=== PATIENT | female | born 1995 | race Caucasian/White ===

== ENCOUNTER 2019-08-28 17:37 | Inpatient (IN) | payer OTHER ==
[~2019-08-28] VITALS: Ht 152.4 cm; Wt 56.7 kg
[2019-08-28 17:37] VITALS: BP_SYST 119
--- NOTE | 2019-08-28 17:37 | NUR ---
BROUGHT BACK TO ER #4 AND TRIAGED. REPORT GIVEN TO WILLARD
--- NOTE | 2019-08-28 17:55 | NUR ---
ER Dr. James at bedside examining patient.
[2019-08-28] MEDS ORDERED: ONDANSETRON HCL 4 MG/2 ML VIAL IVP ONE (18:00)
[2019-08-28] MEDS ORDERED: NACL 0.9% 1,000 ML IV ONE (18:00)
[2019-08-28 18:07] LABS: BASOPHILS # (AUTO) 0.1 K/uL (0.0-0.2); BASOPHILS % (AUTO) 0.6 % (0.0-2.0); EOSINOPHILS # (AUTO) 0.1 K/uL (0.0-0.4); EOSINOPHILS % (AUTO) 0.5 % (0.0-4.0); HEMOGLOBIN 14.6 g/dL (12.0-16.0); LYMPHOCYTES # (AUTO) 1.4 K/uL (1.0-5.5); LYMPHOCYTES % (AUTO) 14.6 % (20.5-51.5); MEAN CORPUSCULAR HEMOGLOBIN 31 pg (27-31); MEAN CORPUSCULAR HGB CONC 35 % (32-36); MEAN CORPUSCULAR VOLUME 89 fL (79.0-98.0); MONOCYTES # (AUTO) 0.7 K/uL (0.0-1.0); MONOCYTES % (AUTO) 7.5 % (1.7-9.3); NEUTROPHILS # (AUTO) 7.5 K/uL (1.8-7.7); NEUTROPHILS % (AUTO) 76.8 % (40.0-70.0); PLATELET COUNT (AUTO) 264 K/uL (130-430); RED BLOOD CELL COUNT(AUTO) 4.74 MIL/uL (4.2-6.2); RED CELL DISTRIBUTION WIDTH 13.6 % (9.0-15.0); WHITE BLOOD COUNT (AUTO) 9.8 K/uL (4.8-10.8)
--- NOTE | 2019-08-28 18:30 | NUR ---
Pt c/o n/v and states she is 9 weeks and had also recently been getting IVs and fluids. Pt states no pain at this time. No other complaints or injuries per pt or noted.
--- NOTE | 2019-08-28 19:16 | NUR ---
Endorsed plan of care to Filemon MCDANIELS.
[2019-08-28 19:31] LABS: CALCIUM 9.4 mg/dL (8.4-11.0); CREATININE 0.65 mg/dL (0.55-1.30)
[2019-08-28 19:38] LABS: POTASSIUM 2.7 mmol/L (3.5-5.1)
--- NOTE | 2019-08-28 19:40 | NUR ---
Patient will be admitted to care of Dr. Del Cid. Admitted to OB unit. Will go to room 6. Belongings list completed. Summary report printed. Report will be given at bedside.
[2019-08-28] MEDS: D5/0.45 NS 1,000 ML IV SCH (19:50)
[2019-08-28 19:58] LABS: TOTAL BILIRUBIN 1.5 mg/dL (0.0-1.0)
[2019-08-28] MEDS ORDERED: KCL 20 mEq in D5NS 1000 mL 1,000 ML IV ONE ×3 (20:45→22:40)
[2019-08-28] MEDS ORDERED: POTASSIUM CHLORIDE 40 MEQ in NS 250 ML IV ONE (20:45)
[2019-08-28 21:04] VITALS: BP_SYST 118
[2019-08-28] MEDS ORDERED: FLU VACC QS2019-20 36MOS UP/PF 60 MCG/0.5 ML SYRINGE I.M. PRN (21:30)
[2019-08-28] MEDS ORDERED: KCL 20 mEq in 100 mL (PREMIX) 100 ML IV ONE (22:00)
[2019-08-28] MEDS: ONDANSETRON HCL 4 MG/2 ML VIAL IVP PRN (22:48)
[2019-08-28] MEDS ORDERED: KCL 20 mEq in 100 mL (PREMIX) 200 ML IV ONE (22:50)
[2019-08-28] MEDS ORDERED: MILK OF MAGNESIA 30 ML UDC PO PRN (23:30)
[2019-08-29] MEDS: D5/0.45 NS 1,000 ML IV SCH ×2 (00:30→05:30)
[2019-08-29] MEDS: ONDANSETRON HCL 4 MG/2 ML VIAL IVP PRN ×3 (04:13→20:19)
[2019-08-30] MEDS: KCL 20 mEq in D5NS 1000 mL 1,000 ML IV SCH ×2 (03:42→13:26)
[2019-08-30] MEDS: ONDANSETRON HCL 4 MG/2 ML VIAL IVP PRN ×4 (08:08→21:25)
[2019-08-30 08:27] LABS: ALBUMIN 2.7 g/dL (3.4-4.8); CALCIUM 7.8 mg/dL (8.4-11.0); CREATININE 0.54 mg/dL (0.55-1.30); POTASSIUM 3.3 mmol/L (3.5-5.1); TOTAL BILIRUBIN 0.8 mg/dL (0.0-1.0)
[2019-08-30] MEDS ORDERED: PROCHLORPERAZINE MALEATE 10 MG TABLET PO PRN (09:15)
[2019-08-30] MEDS ORDERED: *PPN PER PHARMACY XX PRN (11:00)
[2019-08-30] MEDS ORDERED: PANTOPRAZOLE SODIUM 40 MG/VIAL (PROTONIX) IVP ONE (11:30)
[2019-08-30] MEDS ORDERED: SUCRALFATE 1 GM TABLET PO ONE (11:30)
[2019-08-30] MEDS ORDERED: KCL 20 mEq in 100 mL (PREMIX) 100 ML IV ONE (13:15)
[2019-08-30] MEDS: PROCHLORPERAZINE EDISYLATE 10 MG/2 ML VIAL IVP PRN (13:19)
--- NOTE | 2019-08-30 15:20 | NUR ---
ADMISSION NOTE Received patient from OB via wheelchair, received report from RN. Patient admitted with diagnosis of nausea and vomiting. Patient oriented to room call light, toileting and safety-patient verbalized understanding.
[2019-08-30 16:08] VITALS: BP_SYST 107
--- NOTE | 2019-08-30 17:30 | NUR ---
RN ROUNDS Patient remain to be alert, awake and verbally responsive. Denies any pain or discomfort at this time. No nausea or vomiting. RP at bedside. Call light within the reach.
[2019-08-30] MEDS: SUCRALFATE 1 GM TABLET PO SCH ×2 (18:11→22:41)
--- NOTE | 2019-08-30 19:30 | NUR ---
Closing Notes Patient remain to be alert, awake and verbally responsive. Denies any pain or discomfort at this time. IV line in place and intact. IVF infusing well. Call light within the reach. Bed alarm on , bed at lowest position. Will endorse to the next shift.
--- NOTE | 2019-08-30 19:35 | NUR ---
ROUNDS PATIENT RESTING COMFORTABLY IN BED, VITALS STABLE, DENIES ANY PAIN AT THIS TIME NO NAUSEA AND VOMITING. ASSESSMENT DONE AND DOCUMENTED. SEE FLOWSHEET. NEEDS ATTENDED TO. SAFETY AND FALL PRECAUTION MEASURES IN PLACED. CALL LIGHT PLACED WITHIN REACH.
[2019-08-30] MEDS ORDERED: MVI IV SCH ×7 (21:00)
[2019-08-30] MEDS ORDERED: SODIUM ACETATE IV SCH ×7 (21:00)
[2019-08-30] MEDS ORDERED: TPN PERIPHERAL IV SCH ×7 (21:00)
[2019-08-30] MEDS ORDERED: POTASSIUM CHLORIDE IV SCH ×7 (21:00)
[2019-08-30] MEDS ORDERED: [UNRECOGNIZED DRUG - OTHER] IV SCH ×7 (21:00)
--- NOTE | 2019-08-30 21:15 | NUR ---
MEDICATIONS DUE MEDICATIONS GIVEN ORDERED, TOLERATED WELL. WILL CONTINUE TO MONITOR.
--- NOTE | 2019-08-31 00:13 | NUR ---
PATIENT RESTING: Patient resting quietly. No acute distress noted. Vital signs within normal range.
[2019-08-31] MEDS: D5NS 1,000 ML IV SCH ×2 (00:57→16:45)
[2019-08-31 01:02] VITALS: BP_SYST 107
--- NOTE | 2019-08-31 02:14 | NUR ---
ROUNDS PATIENT ASLEEP, RESPIRATIONS EVEN AND UNLABORED, WILL CONTINUE TO MONITOR.
--- NOTE | 2019-08-31 04:14 | NUR ---
PATIENT RESTING: Patient resting quietly. No acute distress noted. Vital signs within normal range.
[2019-08-31] MEDS: SUCRALFATE 1 GM TABLET PO SCH ×4 (06:40→20:32)
--- NOTE | 2019-08-31 06:57 | NUR ---
CLOSING NOTES PATIENT AWAKE, VITALS STABLE, NO COMPLAINTS AT THIS TIME. ALL NEEDS ATTENDED TO. SAFETY MEASURES MAINTAINED. CALL LIGHT PLACED WITHIN REACH.
[2019-08-31 07:06] LABS: BASOPHILS % (AUTO) 0.6 % (0.0-2.0); EOSINOPHILS % (AUTO) 0.7 % (0.0-4.0); HEMATOCRIT 32.2 % (36-48); HEMOGLOBIN 11.3 g/dL (12.0-16.0); LYMPHOCYTES # (AUTO) 1.6 K/uL (1.0-5.5); LYMPHOCYTES % (AUTO) 26.2 % (20.5-51.5); MEAN CORPUSCULAR HEMOGLOBIN 31 pg (27-31); MEAN CORPUSCULAR HGB CONC 35 % (32-36); MEAN CORPUSCULAR VOLUME 88 fL (79.0-98.0); MONOCYTES # (AUTO) 0.5 K/uL (0.0-1.0); MONOCYTES % (AUTO) 8.1 % (1.7-9.3); NEUTROPHILS % (AUTO) 64.4 % (40.0-70.0); RED BLOOD CELL COUNT(AUTO) 3.67 MIL/uL (4.2-6.2); RED CELL DISTRIBUTION WIDTH 13.7 % (9.0-15.0); WHITE BLOOD COUNT (AUTO) 6.3 K/uL (4.8-10.8)
[2019-08-31 07:16] LABS: ALBUMIN 2.8 g/dL (3.4-4.8); CALCIUM 8.5 mg/dL (8.4-11.0); CREATININE 0.55 mg/dL (0.55-1.30); PHOSPHORUS 1.8 mg/dL (2.7-4.5); POTASSIUM 3.2 mmol/L (3.5-5.1); TOTAL BILIRUBIN 0.9 mg/dL (0.0-1.0)
--- NOTE | 2019-08-31 07:20 | NUR ---
am rounds: Patient sleeping during rounds. Significant other at the bedside. No acute distress. Call light iwth in reach. Bed locked at lowest position.
[2019-08-31 08:15] VITALS: BP_SYST 121
[2019-08-31] MEDS: PANTOPRAZOLE SODIUM 40 MG/VIAL (PROTONIX) IVP SCH (09:48)
[2019-08-31 11:08] VITALS: BP_SYST 94
[2019-08-31 11:27] LABS: PLATELET COUNT (AUTO) 159 K/uL (130-430)
--- NOTE | 2019-08-31 11:36 | NUR ---
Carafate: Patient took oral medications well,with no complications.
--- NOTE | 2019-08-31 12:26 | NUR ---
RN ROUNDS: PATIENT ON CLEAR LIQUID DIET. NO NAUSEA/VOMITING THIS TIME.
--- NOTE | 2019-08-31 12:28 | NUR ---
Nutrition Assessment (short note d/t lack of time) PMH: N/V, Hyperemesis Gravidarum, Elevated Liver Enzymes A- RD reviewed pt's current EMR including diet Hx, physician notes, nursing notes, pertinent labs/meds/procedures, care trends and care activity. Nutrition Support trigger received. Pt seen resting in bed at time of RD visit. Pt reported of going slow w/ diet, but was able to tolerate jello and some fruit juice from breakfast tray. Last BM was yesterday. Pt reported that she has been on liquid diet at home for 3 weeks now, and has not been able to keep any liquid down for the most part. She vomits 5-8 times per day and has lost 20# in 2months. UBW was 145# before . Pt denied any food allergy. Current TPN support provides: 514 kcal, 43 gm protein and GIR 1.77gm CHO/kg/min. Pt is not yet meeting adequate nutrition and was advised to improve PO intake. Also RD rec to Tin Gillis to increase PPN infusion rate. Ht: 5'0 Wt: 125#/ 57 kg BMI: 24.4 kg/m2 (Normal) %IBW: 125# IBW: 100#/ 45kg ESTIMATED NUTRITIONAL REQUIREMENTS CALORIES/DAY: 1638 kcal/day (BEE x 1.2-1.5 CBW for ) PROTEIN/DAY: 71-82 gm/day (0.8-1gm/kg CBW +25gm/day for ) FLUID/DAY: 1.6-2L/day (1ml/calorie for repletion) D: 1. Malnutrition r/t chronic illness 2/2 complications of AEB poor PO intake, 14% severe weight loss in 2 months. 2. Inadequate PO intake r/t altered GI function AEB pt's report of N/V, intolerance to solid and liquid food, and need for nutrition support/TPN. I: 1. Recommend: continuing Clear liquid diet. 2. Recommend increasing infusion rate of PPN: D20% AA 8.5% at 80ml/hr (goal rate) via peripheral line. To provide: 979 kcal, 82 gm protein and GIR 2.34 gm CHO/kg/min. 3. If PO intake does not improve, consider PICC line to better meet nutrient needs. M: Monitor appetite and PO intake w/ goal of pt meeting at least 75% of estimated nutritional needs, labs trending WNL, normal GI function, skin integrity/wt maintenance. E: RD to F/U within 2-[address]
--- NOTE | 2019-08-31 12:49 | NUR ---
Dietitian recommendation 1. Recommend: continuing Clear liquid diet. 2. Recommend increasing infusion rate of PPN: D20% AA 8.5% at 80ml/hr (goal rate) via peripheral line. To provide: 979 kcal, 82 gm protein and GIR 2.34 gm CHO/kg/min. 3. If PO intake does not improve, consider PICC line to better meet nutrient needs. PLease see Nutritional Assessment for details. CUSTODIAL, RD
--- NOTE | 2019-08-31 15:23 | NUR ---
Rn Rounds: Not in any distress. Continue to monitor.
[2019-08-31] MEDS: ONDANSETRON HCL 4 MG/2 ML VIAL IVP PRN (16:46)
[2019-08-31 16:56] VITALS: BP_SYST 112
--- NOTE | 2019-08-31 18:47 | NUR ---
Closing Notes: No nausea/vomiting this time. No acute distress. gi did rounds,ordered mri mrcp,will endorsed to night nurse to verify order due to no mri during weekends. Call light with in reach. Bed locked at lowest position.
[2019-08-31 18:57] LABS: TOTAL IRON BIND. CAPACITY 194 ug/dL (250-450)
--- NOTE | 2019-08-31 19:35 | NUR ---
ROUNDS PATIENT RESTING COMFORTABLY IN BED, NOT IN DISTRESS, VITALS STABLE, DENIES ANY PAIN AND DISCOMFORT AT THIS TIME. ASSESSMENT DONE AND DOCUMENTED. SEE FLOWSHEET. NEEDS ATTENDED TO. SAFETY AND FALL PRECAUTION MEASURES IN PLACED. BED IN LOW AND LOCKED POSITION. CALL LIGHT PLACED WITHIN REACH.
[2019-08-31] MEDS: FAT EMULSIONS 250 ML IV SCH (20:34)
[2019-08-31] MEDS ORDERED: SODIUM ACETATE IV SCH ×9 (21:00)
[2019-08-31] MEDS ORDERED: MVI IV SCH ×9 (21:00)
[2019-08-31] MEDS ORDERED: POTASSIUM CHLORIDE IV SCH ×9 (21:00)
[2019-08-31] MEDS ORDERED: TPN PERIPHERAL IV SCH ×9 (21:00)
[2019-08-31] MEDS ORDERED: [UNRECOGNIZED DRUG - OTHER] IV SCH ×9 (21:00)
--- NOTE | 2019-08-31 21:13 | NUR ---
MEDICATION DUE MEDICATIONS GIVEN SCHEDULED, TOLERATED WELL. WILL CONTINUE TO MONITOR.
--- NOTE | 2019-09-01 00:13 | NUR ---
PATIENT RESTING: Patient resting quietly. No acute distress noted. Vital signs within normal range.
[2019-09-01 01:39] VITALS: BP_SYST 105
[2019-09-01 01:40] VITALS: BP_SYST 105
--- NOTE | 2019-09-01 02:15 | NUR ---
ROUNDS PATIENT ASLEEP, RESPIRATIONS EVEN AND UNLABORED, WILL CONTINUE TO MONITOR.
--- NOTE | 2019-09-01 04:14 | NUR ---
ROUNDS PATIENT ASLEEP, RESPIRATIONS EVEN AND UNLABORED, WILL CONTINUE TO MONITOR.
[2019-09-01] MEDS: SUCRALFATE 1 GM TABLET PO SCH ×4 (06:21→21:42)
[2019-09-01 06:25] LABS: ALBUMIN 2.6 g/dL (3.4-4.8); CALCIUM 8.1 mg/dL (8.4-11.0); CREATININE 0.56 mg/dL (0.55-1.30); PHOSPHORUS 2.3 mg/dL (2.7-4.5); POTASSIUM 3.5 mmol/L (3.5-5.1); TOTAL BILIRUBIN 0.4 mg/dL (0.0-1.0)
--- NOTE | 2019-09-01 06:31 | NUR ---
CLOSING NOTES PATIENT AWAKE, VITALS STABLE, NO COMPLAINTS AT THIS TIME. ALL NEEDS ATTENDED TO. SAFETY MEASURES MAINTAINED. CALL LIGHT PLACED WITHIN REACH.
--- NOTE | 2019-09-01 07:20 | NUR ---
Am Rounds: Patient awake on the bed. With significant other in the room. No acute distress. Call light with in reach. Bed locked at lowest position.
[2019-09-01 07:59] VITALS: BP_SYST 100
[2019-09-01] MEDS: PANTOPRAZOLE SODIUM 40 MG/VIAL (PROTONIX) IVP SCH (09:31)
[2019-09-01] MEDS: D5NS 1,000 ML IV SCH (09:32)
--- NOTE | 2019-09-01 09:35 | NUR ---
Rn Rounds: No nausea/vomiting per patient. Significant other at the bedside. Stable this time.
[2019-09-01] MEDS: ONDANSETRON HCL 4 MG/2 ML VIAL IVP PRN ×2 (11:25→17:19)
[2019-09-01 11:31] VITALS: BP_SYST 90
--- NOTE | 2019-09-01 11:31 | NUR ---
IV NOTES: LEFT WRIST INFILTRATED,REMOVED AND GAUZE APPLIED,NO BLEEDING. IV RE SITED AT LEFT UPPER ARM USING G#22,IVF CONTINUE ORDERED.
--- NOTE | 2019-09-01 12:25 | NUR ---
RN ROUNDS: PATIENT HAVING CLEAR LIQUID DIET ORDERED. TOLERATED THIS TIME.
--- NOTE | 2019-09-01 14:30 | NUR ---
RN ROUNDS: PATIENT RESTING. NO ACUTE DISTRESS.
[2019-09-01 15:06] VITALS: BP_SYST 98
--- NOTE | 2019-09-01 16:25 | NUR ---
RN ROUNDS: PATIENT AWAKE AND WATCHING TV. NOT IN ANY DISTRESS.
--- NOTE | 2019-09-01 17:42 | NUR ---
IV NOTES: IV INFILTRATED. IV RE SITED AT LEFT HAND USING G#22,IV ZOFRAN GIVEN PRIOR TO DINNER.GI MD CAME AND ADVANCE DIET TO FULL LIQUID.
--- NOTE | 2019-09-01 18:32 | NUR ---
END OF SHIFT: PATIENT TOLERATED FULL LIQUID. NO COMPLAINED OF NAUSEA/VOMITING THIS TIME. PPN/LIPIDS RUNNING AT LEFT FOREARM AND IVF RUNNING WELL AT LEFT HAND INTACT.SAFETY MEASURES RENDERED. PRACTICE GUIDELINES MET THROUGH OUT THE SHIFT.
--- NOTE | 2019-09-01 19:35 | NUR ---
ROUNDS PATIENT RESTING COMFORTABLY IN BED, VITALS STABLE, DENIES ANY NAUSEA/VOMITING AT THIS TIME. ASSESSMENT DONE AND DOCUMENTED. SEE FLOWSHEET. NEEDS ATTENDED TO. SAFETY AND FALL MEASURES IN PLACED. CALL LIGHT PLACED WITHIN REACH.
[2019-09-01 20:00] VITALS: BP_SYST 101
[2019-09-01] MEDS ORDERED: [UNRECOGNIZED DRUG - OTHER] IV SCH ×9 (21:00)
[2019-09-01] MEDS ORDERED: POTASSIUM CHLORIDE IV SCH ×9 (21:00)
[2019-09-01] MEDS ORDERED: SODIUM CHLORIDE IV SCH ×9 (21:00)
[2019-09-01] MEDS ORDERED: TPN PERIPHERAL IV SCH ×9 (21:00)
--- NOTE | 2019-09-01 21:25 | NUR ---
MEDICATION DUE MEDICATIONS GIVEN SCHEDULED, TOLERATED WELL. WILL CONTINUE TO MONITOR.
[2019-09-01] MEDS: FAT EMULSIONS 250 ML IV SCH (21:45)
--- NOTE | 2019-09-02 00:13 | NUR ---
PATIENT RESTING: Patient resting quietly. No acute distress noted. Vital signs within normal range.
[2019-09-02 00:20] VITALS: BP_SYST 99
--- NOTE | 2019-09-02 02:14 | NUR ---
ROUNDS PATIENT ASLEEP, RESPIRATIONS EVEN AND UNLABORED, WILL CONTINUE TO MONITOR.
--- NOTE | 2019-09-02 04:20 | NUR ---
ROUNDS PATIENT ASLEEP, NO SOB NOR PAIN AND DISCOMFORT NOTED, WILL CONTINUE TO MONITOR.
[2019-09-02] MEDS: D5NS 1,000 ML IV SCH ×2 (05:35→09:41)
[2019-09-02] MEDS: SUCRALFATE 1 GM TABLET PO SCH ×4 (06:02→21:33)
--- NOTE | 2019-09-02 06:48 | NUR ---
CLOSING NOTES PATIENT AWAKE, VITALS STABLE, NO COMPLAINTS AT THIS TIME. ALL NEEDS ATTENDED TO. SAFETY MEASURES MAINTAINED. BED IN LOW AND LOCKED POSITION. CALL LIGHT PLACED WITHIN REACH.
[2019-09-02 07:02] LABS: CALCIUM 8.1 mg/dL (8.4-11.0); CREATININE 0.58 mg/dL (0.55-1.30); PHOSPHORUS 3.6 mg/dL (2.7-4.5); POTASSIUM 3.8 mmol/L (3.5-5.1)
--- NOTE | 2019-09-02 07:45 | NUR ---
OPENING NOTE PATIENT AWAKE. A/OX4. ROOM AIR. NO ACUTE DISTRESS. NO SOB. RESPIRATION EVEN AND UNLABORED. SKIN WARM AND DRY TO TOUCH. IV INTACT AND PATENT. PATIENT ANABELA IVF, TPN AND LIPIDS ORDERED. BED IN LOW AND LOCKED POSITION. SIDERAIL UPX3. AT BEDSIDE. ALL NEEDS MET. CALL LIGHT IN REACH. CONT TO MONITOR
[2019-09-02 08:00] VITALS: BP_SYST 97
[2019-09-02 08:08] LABS: FERRITIN 134 ng/mL (15-150)
[2019-09-02] MEDS: PANTOPRAZOLE SODIUM 40 MG/VIAL (PROTONIX) IVP SCH (08:08)
[2019-09-02] MEDS: ONDANSETRON HCL 4 MG/2 ML VIAL IVP PRN (08:13)
--- NOTE | 2019-09-02 08:17 | NUR ---
MEDS DUE MEDS ADMINISTERED ORDERED, ANABELA WELL. CONT TO MONITOR
--- NOTE | 2019-09-02 09:00 | NUR ---
MRI/MRCP PATIENT SPOKE TO RADIOLOGIST REGARDING MRI/MRCP AND BEING . RADIOLOGIST DIDNT RECOMMEND PATIENT TO GO THROUGH WITH TESTING CONSIDERING SHE IS IN HER FIRST TRIMESTER UNLESS DX IS LIFE THREATENING TO HER. PER PATIENT SHE IS REFUSING MRI/MRCP AT THIS TIME.
[2019-09-02 11:25] VITALS: BP_SYST 111
--- NOTE | 2019-09-02 11:30 | NUR ---
SHOWER PATIENT STABLE. IV SITE WRAPPED. PATIENT SHOWERED, ASSISTED BY MOTHER. NO DIFFICULTY NOTED.
--- NOTE | 2019-09-02 13:00 | NUR ---
NOTE PATIENT REQUESTED FOR JUICE. ALL NEEDS MET. CALL LIGHT IN REACH. CONT TO MONITOR
[2019-09-02 15:30] VITALS: BP_SYST 113
--- NOTE | 2019-09-02 16:03 | NUR ---
NOTE PATIENT IS STABLE. SITTING IN BED WATCHING TV. NO ACUTE DISTRESS. NO SOB. RESPIRATION EVEN AND UNLABORED. ANABELA IVF, TPN AND LIPIDS ORDERED. ALL NEEDS MET. CALL LIGHT IN REACH. CONT TO MONITOR
--- NOTE | 2019-09-02 17:03 | NUR ---
NOTE MEDICATION ADMINISTERED ORDERED, ANABELA WELL. PATIENT IS STABLE. ALL NEEDS MET. CALL LIGHT IN REACH. CONT TO MONITOR
--- NOTE | 2019-09-02 18:36 | NUR ---
CLOSING NOTE PATIENT IS STABLE. DENIES ANY PAIN. NO ACUTE DISTRESS. NO SOB. RESPIRATION EVEN AND UNLABORED. SKIN WARM AND DRY TO TOUCH. IVs INTACT AND PATENT; ANABELA TPN AND IVF. BED IN LOW AND LOCKED POSITION. SIDERAIL UPX2. ALL NEEDS MET. CONT TO MONITOR. CALL LIGHT IN REACH. WILL ENDORSE TO ONCOMING SHIFT.
--- NOTE | 2019-09-02 19:20 | NUR ---
OPENING NOTE RECEIVED CARE OF PT AND SBAR REPORT. PT IS AWAKE AND RESTING IN BED. A/OX4. ROOM AIR. NO ACUTE DISTRESS. NO SOB. RESPIRATION EVEN AND UNLABORED. SKIN WARM AND DRY TO TOUCH. IV INTACT AND PATENT. PATIENT TOLERATING IVF, TPN AND LIPIDS ORDERED. PT DENIES PAIN OR DISCOMFORT. PT DENIES NAUSEA OR VOMITING AT THIS TIME. SAFETY PRECAUTIONS ARE IN PLACE: BED IN LOW AND LOCKED POSITION. SIDERAIL UPX3.CALL LIGHT IS WITH PT. PERSONAL ITEMS WITHIN REACH. WILL CONT TO MONITOR.
[2019-09-02 20:00] VITALS: BP_SYST 108
[2019-09-02] MEDS ORDERED: SODIUM CHLORIDE IV SCH ×9 (21:00)
[2019-09-02] MEDS ORDERED: TPN PERIPHERAL IV SCH ×9 (21:00)
[2019-09-02] MEDS ORDERED: [UNRECOGNIZED DRUG - OTHER] IV SCH ×9 (21:00)
[2019-09-02] MEDS ORDERED: POTASSIUM CHLORIDE IV SCH ×9 (21:00)
[2019-09-02] MEDS: FAT EMULSIONS 250 ML IV SCH (21:36)
--- NOTE | 2019-09-02 21:36 | NUR ---
MEDICATION PASS SCHEDULED CARAFATE GIVEN ORDERED. DUE TPN AND LIPIDS VERIFIED BY A SECOND NURSE PER PROTOCOL AND ADMINISTERED ORDERED. PT TOLERATED WELL. NO S/S OF DISTRESS. MEDICATION ACTIONS AND POTENTIAL SIDE EFFECTS DISCUSSED, PT VERBALIZED UNDERSTANDING. SAFETY PRECAUTIONS MAINTAINED. WILL MONITOR.
--- NOTE | 2019-09-02 23:32 | NUR ---
RN NOTE: PT RESTING IN BED. VSS. PT DENIES PAIN OR DISCOMFORT AT THIS TIME. IVF, TPN, AND LIPIDS ARE INFUSING AT ORDERED RATE. NO S/S OF DISTRESS. BREATHING IS UNLABORED TO ROOM AIR. SAFETY AND FALL PRECAUTIONS MAINTAINED. WILL MONITOR.
[2019-09-02 23:45] VITALS: BP_SYST 105
--- NOTE | 2019-09-03 01:20 | NUR ---
RESTING PT RESTING IN BED WITH EYES CLOSED, NO S/S OF DISTRESS, BREATHING IS EVEN AND EFFORTLESS TO ROOM AIR, NO S/S OF PAIN. SAFETY PRECAUTIONS OBSERVED. WILL MONITOR.
--- NOTE | 2019-09-03 03:32 | NUR ---
SLEEPING PT SLEEPING IN BED, NO S/S OF DISTRESS, BREATHING IS UNLABORED TO ROOM AIR WITH VISIBLE RISE AND FALL OF CHEST. SAFETY AND FALL PRECAUTIONS ARE IN PLACE. WILL MONITOR.
--- NOTE | 2019-09-03 05:45 | NUR ---
IV RE-INSERTION: Complaining of pain to IV site. Restarted on right wrist. Successful after 1 attempts. Will observe for any signs of infiltration.
[2019-09-03] MEDS: SUCRALFATE 1 GM TABLET PO SCH ×4 (05:55→20:30)
[2019-09-03] MEDS: D5NS 1,000 ML IV SCH (05:55)
[2019-09-03] MEDS: ONDANSETRON HCL 4 MG/2 ML VIAL IVP PRN (07:09)
--- NOTE | 2019-09-03 07:31 | NUR ---
CLOSING NOTES PATIENT AWAKE, VITALS STABLE, NO COMPLAINTS AT THIS TIME. ALL NEEDS ATTENDED TO. SAFETY MEASURES MAINTAINED. BED IN LOW AND LOCKED POSITION. CALL LIGHT PLACED WITHIN REACH. CARE ENDORSED TO DAY SHIFT RN.
--- NOTE | 2019-09-03 07:35 | NUR ---
Opening Note received bedside SBAR report from second shift supervisor RN, patient resting in bed, respirations even and unlabored on room air, no acute distress noted, patient denies any pain, educated patient on use of call light and asked to call for assistance, patient verbalized understanding, call light in reach, educated patient on use of bed alarm for patient safety, patient refusing bed alarm, bed in low and locked position.
[2019-09-03 07:52] LABS: BASOPHILS % (AUTO) 0.7 % (0.0-2.0); EOSINOPHILS # (AUTO) 0.2 K/uL (0.0-0.4); EOSINOPHILS % (AUTO) 2.8 % (0.0-4.0); HEMATOCRIT 32.5 % (36-48); HEMOGLOBIN 11.2 g/dL (12.0-16.0); LYMPHOCYTES # (AUTO) 1.9 K/uL (1.0-5.5); LYMPHOCYTES % (AUTO) 26.6 % (20.5-51.5); MEAN CORPUSCULAR HEMOGLOBIN 31 pg (27-31); MEAN CORPUSCULAR HGB CONC 35 % (32-36); MEAN CORPUSCULAR VOLUME 89 fL (79.0-98.0); MONOCYTES # (AUTO) 0.6 K/uL (0.0-1.0); MONOCYTES % (AUTO) 9.1 % (1.7-9.3); NEUTROPHILS # (AUTO) 4.3 K/uL (1.8-7.7); NEUTROPHILS % (AUTO) 60.8 % (40.0-70.0); PLATELET COUNT (AUTO) 138 K/uL (130-430); RED BLOOD CELL COUNT(AUTO) 3.64 MIL/uL (4.2-6.2); RED CELL DISTRIBUTION WIDTH 14.1 % (9.0-15.0); WHITE BLOOD COUNT (AUTO) 7.1 K/uL (4.8-10.8)
[2019-09-03] MEDS: PANTOPRAZOLE SODIUM 40 MG/VIAL (PROTONIX) IVP SCH (08:15)
[2019-09-03 08:16] LABS: HEPATITIS A AB, IgM Negative (Negative); HEPATITIS B CORE AB, IgM Negative (Negative); HEPATITIS B SURFACE AG Negative (Negative)
[2019-09-03 08:21] LABS: ALBUMIN 2.8 g/dL (3.4-4.8); CALCIUM 8.4 mg/dL (8.4-11.0); CREATININE 0.51 mg/dL (0.55-1.30); PHOSPHORUS 4.1 mg/dL (2.7-4.5); POTASSIUM 3.7 mmol/L (3.5-5.1); TOTAL BILIRUBIN 0.3 mg/dL (0.0-1.0)
[2019-09-03 09:22] VITALS: BP_SYST 112
--- NOTE | 2019-09-03 09:40 | NUR ---
RN Rounds patient resting in bed, patient tolerated breakfast well, patient reports nausea is controlled at this time, patient denies any pain.
--- NOTE | 2019-09-03 10:53 | NUR ---
Spoke with Physician spoke with Dr. Del Cid, informed him that patient is on TPN, new orders received for fingerstick blood glucose checks and insulin orders, verified with read back.
[2019-09-03] MEDS ORDERED: INSULIN REGULAR, HUMAN 100 UNITS/ML, 10 ML VIAL (humuLIN R) SUBCUT PRN (11:00)
[2019-09-03 11:07] VITALS: BP_SYST 100
[2019-09-03] MEDS ORDERED: D5W 1,000 ML IV PRN (11:15)
[2019-09-03] MEDS ORDERED: DEXTROSE 50%-WATER 50 ML DISP.SYRIN IVP PRN (11:15)
[2019-09-03] MEDS ORDERED: GLUCOSE 15 GM GEL (in 37.5 GM TUBE) PO PRN (11:15)
--- NOTE | 2019-09-03 12:10 | NUR ---
RN Rounds patient sitting up in bed eating lunch, patient tolerating well, patient reports nausea is controlled at this time.
--- NOTE | 2019-09-03 13:46 | NUR ---
Nutrition F/U A- RD reviewed pt's current EMR including diet Hx, physician notes, nursing notes, pertinent labs/meds/procedures, care trends, and care activity. Admitting Dx: Hyperemesis gravidum PMH: none Current Diet order: Soft (low fiber/bland) x0 days Current Nutrition Support: PPN D20%, AA8.5% at 65 ml/hr, IL20% at 5 ml/hr via peripheral line -- increased PPN rate to begin later today Provides: 1034 kcal/day, 66 gm protein/day, 1560 ml total volume/day, and GIR: 1.9 gm CHO/kg/min Meets: 63% of lower end of estimated caloric needs and 93% of lower end of estimated protein needs Subjective Info: Pt seen resting in bed w/ lunch tray at bedside. Pt had begun eating chicken parmesan and reported good appetite. Pt reported that she wants to introduce flavor and food back into her diet slowly. Pt reported last BM was 2 days ago; no c/o N/V/C/D. Pt continues on PPN support -- appropriate route for nutrition at this time until pt increases PO intakes. RD offered nutrition education on general healthy MNT -- pt accepted; RD to provide. Please refer to interdisciplinary teaching record for details. Ht: 5'/60" Wt: 125#/57 kg BMI: 24.4 kg/m2 (Normal) IBW: 100#/ 45kg %IBW: 125# UBW: 145#/66kg %UBW: 86% ESTIMATED NUTRITIONAL REQUIREMENTS NEW CALORIES/DAY: 8758-7033 kcal/day (BEE x 1.2-1.5 CBW for ) NEW PROTEIN/DAY: 71-82 gm/day (0.8-1gm/kg CBW for ) NEW FLUID/DAY: 1.6-2 L/day (1 ml/kcal/day for repletion) D: 1. Malnutrition r/t chronic illness 2/2 complications of AEB poor PO intake, 14% severe weight loss in 2 months. 2. Inadequate PO intake r/t altered GI function AEB pt's report of N/V, intolerance to solid and liquid food, and need for nutrition support/PPN. I: 1. Recommend continuing soft (low fiber/bland) diet 2. Consider tapering off PPN support if PO intakes consistently exceed 75% at meal times M: Monitor appetite and PO intake w/ goal of pt meeting at least 75% of estimated nutritional needs, labs trending WNL, normal GI function, skin integrity/wt maintenance. E: RD to F/U within 2-3 days
--- NOTE | 2019-09-03 14:02 | NUR ---
Dietitian Recommendations 1. Recommend continuing soft (low fiber/bland) diet 2. Consider tapering off PPN support if PO intakes consistently exceed 75% at meal times LP, RD Please refer to Nutrition F/U for details.
--- NOTE | 2019-09-03 14:20 | NUR ---
RN Rounds patient resting in bed, patient denies any pain, patient reports nausea is controlled at this time, IV infusing well, no redness or swelling noted at IV site.
[2019-09-03 15:08] VITALS: BP_SYST 100
[2019-09-03 16:09] LABS: ANTI NUCLEAR AB WITH REFLEX Negative (Negative)
--- NOTE | 2019-09-03 16:10 | NUR ---
RN Rounds patient resting in bed, no acute distress noted, patient denies any nausea or vomiting, no acute distress noted.
--- NOTE | 2019-09-03 18:15 | NUR ---
RN Rounds patient sitting up in bed eating dinner, patient tolerating diet well, patient denies any pain or nausea.
--- NOTE | 2019-09-03 19:17 | NUR ---
Closing Note bedside SBAR report given to receiving RN, patient resting in bed, no acute distress noted, patient reports nausea and vomiting are controlled at this time, no acute distress noted, educated patient on use of call light and asked to call for assistance, patient verbalized understanding, call light in reach, educated patient on use of bed alarm for patient safety, patient refusing bed alarm, bed in low and locked position, bed alarm on, care endorsed to shift supervisor film processing RN.
[2019-09-03 19:34] VITALS: BP_SYST 103
--- NOTE | 2019-09-03 19:37 | NUR ---
PM SHIFT ASSESSMENT Recieved patient lying in bed, aox4, vital signs stable, on room air, denies any nausea or vomiting at this time, tolerating soft low fiber diet. IV line to right and left hand intact and patent, no signs of infiltration noted, IVF, TPN and Lipids infusing well. Plan of care discussed with patient, patient verbalized understanding, compliant. Oriented to use call light for nurse assistance, fall and safety measures in place, will monitor.
[2019-09-03] MEDS: FAT EMULSIONS 250 ML IV SCH (20:34)
[2019-09-03] MEDS ORDERED: POTASSIUM CHLORIDE IV SCH ×9 (21:00)
[2019-09-03] MEDS ORDERED: SODIUM CHLORIDE IV SCH ×9 (21:00)
[2019-09-03] MEDS ORDERED: TPN PERIPHERAL IV SCH ×9 (21:00)
[2019-09-03] MEDS ORDERED: [UNRECOGNIZED DRUG - OTHER] IV SCH ×9 (21:00)
--- NOTE | 2019-09-03 21:05 | NUR ---
MED PASS Patient awake, denies any nausea or vomiting, due medications administered, educated on use and side effects of each medication, patient verbalized understanding, blood sugar check this pm of 85, no insulin coverage needed, significant other at bedside, call light within reach, will monitor.
--- NOTE | 2019-09-03 22:18 | NUR ---
RN ROUNDS Patient awake, denies any pain or vomiting, IVF and TPN continues to infuse, significant other at bedside, call light within reach, will monitor.
[2019-09-04 00:10] VITALS: BP_SYST 90
--- NOTE | 2019-09-04 00:16 | NUR ---
RN ROUNDS Patient resting quietly, breathing even and unlabored, vitals stable, significant other at bedside, call light within reach, safety measures in place, will monitor.
--- NOTE | 2019-09-04 02:28 | NUR ---
RN ROUNDS Patient sleeping, breathing is even and unlabored, IVF and TPN continues to infuse, call light within reach, safety measures in place, will monitor.
[2019-09-04] MEDS: D5NS 1,000 ML IV SCH (03:44)
--- NOTE | 2019-09-04 04:17 | NUR ---
RN ROUNDS Patient sleeping, breathing is even and unlabored, IVF and TPN continues to infuse, call light within reach, safety measures in place, will monitor.
[2019-09-04] MEDS: SUCRALFATE 1 GM TABLET PO SCH ×4 (05:56→19:50)
--- NOTE | 2019-09-04 06:48 | NUR ---
CLOSING NOTE/MED PASS Patient awake, denies any nausea or vomiting, due medications administered, RE-educated on use and side effects of each medication, patient verbalized understanding, blood sugar check this am of 97, no insulin coverage needed, IV lines to left and right hand intact and patent, no signs of infiltration, IVF and TPN continues to infuse, significant other remains at bedside, call light within reach, will monitor until report given to am nurse.
--- NOTE | 2019-09-04 07:30 | NUR ---
Opening Note bedside SBAR report received from shift mechanic RN, patient resting in bed, respirations even and unlabored on room air, no acute distress noted, patient reports nausea is controlled at this time, educated patient on use of call light and asked to call for assistance, patient verbalized understanding, call light in reach, educated patient on use of bed alarm for patient safety, patient refusing bed alarm, bed in low and locked position.
[2019-09-04 08:00] VITALS: BP_SYST 119
[2019-09-04 08:06] LABS: BASOPHILS % (AUTO) 0.7 % (0.0-2.0); EOSINOPHILS # (AUTO) 0.2 K/uL (0.0-0.4); HEMATOCRIT 33.4 % (36-48); HEMOGLOBIN 11.5 g/dL (12.0-16.0); LYMPHOCYTES # (AUTO) 1.6 K/uL (1.0-5.5); LYMPHOCYTES % (AUTO) 21.8 % (20.5-51.5); MEAN CORPUSCULAR HEMOGLOBIN 31 pg (27-31); MEAN CORPUSCULAR HGB CONC 34 % (32-36); MEAN CORPUSCULAR VOLUME 90 fL (79.0-98.0); MONOCYTES # (AUTO) 0.7 K/uL (0.0-1.0); MONOCYTES % (AUTO) 9.4 % (1.7-9.3); NEUTROPHILS # (AUTO) 4.7 K/uL (1.8-7.7); NEUTROPHILS % (AUTO) 65.1 % (40.0-70.0); PLATELET COUNT (AUTO) 143 K/uL (130-430); RED BLOOD CELL COUNT(AUTO) 3.72 MIL/uL (4.2-6.2); WHITE BLOOD COUNT (AUTO) 7.3 K/uL (4.8-10.8)
[2019-09-04 08:27] LABS: ALBUMIN 2.8 g/dL (3.4-4.8); CALCIUM 8.2 mg/dL (8.4-11.0); CREATININE 0.59 mg/dL (0.55-1.30); PHOSPHORUS 4.1 mg/dL (2.7-4.5); POTASSIUM 3.9 mmol/L (3.5-5.1); TOTAL BILIRUBIN 0.3 mg/dL (0.0-1.0)
[2019-09-04] MEDS: PANTOPRAZOLE SODIUM 40 MG/VIAL (PROTONIX) IVP SCH (08:35)
--- NOTE | 2019-09-04 09:45 | NUR ---
RN Rounds patient resting in bed, no acute distress noted, patient tolerating diet well, patient denies any nausea or vomiting.
--- NOTE | 2019-09-04 12:20 | NUR ---
RN Rounds patient sitting up in bed eating lunch, tolerating well, patient denies any nausea or vomiting, no acute distress noted.
--- NOTE | 2019-09-04 12:48 | NUR ---
TPN/Lipids spoke with Pharmacist Neftali, per Pharmacist stop lipids at this time, TPN should be reduced to 32.5 ml/hr (half of the dose rate) for 3 hours and then stop TPN, informed patient, patient verbalized understanding.
[2019-09-04 12:49] VITALS: BP_SYST 115
--- NOTE | 2019-09-04 14:19 | NUR ---
RN Rounds patient resting in bed, patient tolerated lunch well, patient denies any nausea or vomiting.
--- NOTE | 2019-09-04 16:05 | NUR ---
D/C TPN TPN stopped at this time per orders, per patient IV site is sore, patient requesting to have IV catheter removed, IV catheter to right hand removed, catheter intact, no bleeding, IV catheter to left wrist clean, dry, intact and infusing fluids well, patient denies any nausea at this time.
--- NOTE | 2019-09-04 17:00 | NUR ---
Blood Glucose blood glucose 72, educated patient on signs and symptoms of hypoglycemia and to report any symptoms to RN, patient verbalized understanding, provided patient with snack and orange juice, patient tolerating well.
[2019-09-04 17:20] VITALS: BP_SYST 121
[2019-09-04] MEDS: ONDANSETRON HCL 4 MG/2 ML VIAL IVP PRN ×2 (18:25→23:13)
--- NOTE | 2019-09-04 19:32 | NUR ---
Closing Note bedside SBAR report given to receiving RN, patient resting in bed, no acute distress noted, educated patient on use of call light and asked to call for assistance, patient verbalized understanding, call light in reach, bed in low and locked position, bed alarm on, care endorsed to shift production supervisor RN.
--- NOTE | 2019-09-04 19:45 | NUR ---
PM SHIFT ASSESSMENT Recieved patient lying in bed, aox4, vital signs stable, on room air, has slight nausea and vomited earlier, Zofran given by day nurse, will administer another nausea medication shortly, IV line to left hand intact and patent, IVF of D5NS infusing at 30 ml/hr, plan of care discussed with patient, patient verbalized understanding, compliant. Oriented to use call light for nurse assistance, fall and safety measures in place, will monitor.
[2019-09-04] MEDS: PROCHLORPERAZINE EDISYLATE 10 MG/2 ML VIAL IVP PRN (19:51)
[2019-09-04 20:15] VITALS: BP_SYST 119
--- NOTE | 2019-09-04 21:00 | NUR ---
MED PASS Patient awake, due medications administered, educated on use and side effects of each medication, patient verbalized understanding, blood sugar check this pm of 90, no insulin coverage needed, call light within reach, will monitor.
--- NOTE | 2019-09-04 22:07 | NUR ---
RN ROUNDS Patient resting quietly, breathing even and unlabored, IVF continues to infuse, call light within reach, safety measures in place, will monitor.
--- NOTE | 2019-09-04 23:35 | NUR ---
NAUSEA Patient c/o of nausea, medicated with zofran 4 mg IVP, will reassess patient's nausea shortly, ice chips provided.
--- NOTE | 2019-09-05 00:21 | NUR ---
RN ROUNDS Patient resting quietly, vital signs stable, IVF continues to infuse, safety measures in place, call light within reach, will monitor.
[2019-09-05 00:36] VITALS: BP_SYST 122
--- NOTE | 2019-09-05 02:06 | NUR ---
RN ROUNDS Patient resting quietly, respirations even and unlabored, safety measures in place, call light within reach, will monitor.
--- NOTE | 2019-09-05 04:26 | NUR ---
RN ROUNDS Patient sleeping, breathing is even and unlabored, IVF continues to infuse, call light within reach, safety measures in place, will monitor.
[2019-09-05] MEDS: D5NS 1,000 ML IV SCH (05:11)
[2019-09-05] MEDS: SUCRALFATE 1 GM TABLET PO SCH ×2 (06:01→11:40)
--- NOTE | 2019-09-05 06:34 | NUR ---
MED PASS Patient awake, denies any nausea or vomiting, due medications administered, blood sugar check this am of 82, no insulin coverage needed, IV line remains intact and patent, IVF continues to infuse call light within reach, will monitor until report given to am nurse.
--- NOTE | 2019-09-05 07:25 | NUR ---
OPENING NOTE Patient resting in the bed. No acute distress. AAO x 4. Denied of pain and nausea. Skin warm and dry to touch. IV intact to left hand, no redness, no swelling, no drainage. On D5 NS at30ml/hr, infusing well. Discussed the safety issue, use call light when needs help, and plan of care, verbally understanding. Safety measure maintained. Call light within reached. Bed locked in low position, side rails up. Refused bed alarm, risk and benefit explained, verbally understanding. Will continue to monitor.
[2019-09-05 08:05] VITALS: BP_SYST 113
[2019-09-05] MEDS: PANTOPRAZOLE SODIUM 40 MG/VIAL (PROTONIX) IVP SCH (09:19)
--- NOTE | 2019-09-05 10:13 | NUR ---
SEEN AND EXAMINED BY MEHRAN PINEDA WITH ORDER TO DISCHARGE IF OK FOR GI.
[2019-09-05 10:25] LABS: BASOPHILS # (AUTO) 0.1 K/uL (0.0-0.2); EOSINOPHILS # (AUTO) 0.1 K/uL (0.0-0.4); EOSINOPHILS % (AUTO) 1.9 % (0.0-4.0); HEMATOCRIT 32.4 % (36-48); LYMPHOCYTES # (AUTO) 1.3 K/uL (1.0-5.5); LYMPHOCYTES % (AUTO) 19.1 % (20.5-51.5); MEAN CORPUSCULAR HEMOGLOBIN 31 pg (27-31); MEAN CORPUSCULAR HGB CONC 34 % (32-36); MEAN CORPUSCULAR VOLUME 89 fL (79.0-98.0); MONOCYTES # (AUTO) 0.6 K/uL (0.0-1.0); MONOCYTES % (AUTO) 8.3 % (1.7-9.3); NEUTROPHILS # (AUTO) 4.8 K/uL (1.8-7.7); NEUTROPHILS % (AUTO) 69.7 % (40.0-70.0); PLATELET COUNT (AUTO) 143 K/uL (130-430); RED BLOOD CELL COUNT(AUTO) 3.62 MIL/uL (4.2-6.2); WHITE BLOOD COUNT (AUTO) 6.9 K/uL (4.8-10.8)
[2019-09-05 10:33] LABS: CALCIUM 8.8 mg/dL (8.4-11.0); CREATININE 0.53 mg/dL (0.55-1.30); POTASSIUM 3.8 mmol/L (3.5-5.1)
[2019-09-05 10:39] LABS: TOTAL BILIRUBIN 0.3 mg/dL (0.0-1.0)
--- NOTE | 2019-09-05 11:28 | NUR ---
SEEN AND EXAMINED BY SOMMER JORGENSEN WITH ORDER OK TO DISCHARGE.
[2019-09-05] MEDS: ONDANSETRON HCL 4 MG/2 ML VIAL IVP PRN (11:52)
--- NOTE | 2019-09-05 11:53 | NUR ---
ZOFRAN GIVEN Patient c/o nausea, Zofran 4mg IVP given as ordered. No acute distress. Safety measure maintained. Call light within reached. Bed locked in low position, side rails up. Continue to monitor.
[2019-09-05 12:00] VITALS: BP_SYST 115
[2019-09-05 13:06] VITALS: BP_SYST 115
[2019-09-05 13:09] LABS: ALPHA-1-ANTITRYPSIN, S 129 mg/dL (100-188); CERULOPLASMIN 20.4 mg/dL (19.0-39.0)
--- NOTE | 2019-09-05 13:25 | NUR ---
ROUND Patient resting in the bed. No acute distress. IV intact, IVF infusing well. Safety measure maintained. Call light within reached. Bed locked in low position, side rails up. Continue to monitor.
--- NOTE | 2019-09-05 15:45 | NUR ---
ROUND Patient resting in the bed. No acute distress. No c/o nausea. IV intact, IVF infusing well. Safety measure maintained. Call light within reached. Bed locked in low position, side rails up. Continue to monitor.
[2019-09-05 16:00] VITALS: BP_SYST 109
[2019-09-08 15:10] LABS: ANTI-SMOOTH MUSCLE AB 3 Units (0-19)
== END 2019-09-05 16:47 | disposition home or self-care (01) | DRG 833 ==
LOC: SED 17:37 → SPU 19:17 → SMU 08-30 15:44
PROVIDERS: ADMIT Specialist; ATTEND Specialist
PROC: 3E0336Z Introduction of Nutritional Substance into Peripheral Vein, Percutaneous Approach (ICD-10-PCS; principal; 2019-09-03)
DX: O21.0 Mild hyperemesis gravidarum (principal); Z3A.09 9 weeks gestation of pregnancy
CPT/HCPCS: 36415; 76700-TC; 80048; 80053; 80074; 82103; 82239; 82390; 82728; 82962; 83516; 83540-TC; 83550-TC; 83690-TC; 83735-TC; 84100-TC; 84478-TC; 84702-TC; 85025; 86038; 96361; 96374; 99285; C9113; J0780; J1815; J2405; J3475; J3480; J7030; J7042; J7050; J7131; Q0164